=== PATIENT | male | born 1970 | race Caucasian/White ===

== ENCOUNTER 2017-05-03 09:21 | Emergency (ER) | payer BC, OTHER ==
--- NOTE | 2017-05-03 09:37 | EDPHY ---
H & P Stated Complaint: Injury R ring finger on free weight Time Seen by Provider: 05/03/17 09:36 HPI/ROS: HPI: This is a 46-year-old male presents with Chief Complaint: Injury R ring finger on free weight Location: Tip of right ring finger Quality: Injury Duration: 30 min prior to arrival Signs and Symptoms: No bleeding, no radiation, no numbness, no weakness, no tingling, no decreased range of motion, + swelling, + pain Timing: Sudden Severity: Moderate Context: Patient is right-hand dominant, was at the gym lifting 35 lb weights, and he accidentally slammed the weight down on his hand causing immediate pain to the tip of his right index finger. He was able to move it but it started to swell and now bruise. He reports that there is decreased range of motion due to swelling and pain. He is able to feel me touch the tip of his finger tip. He has not taken anything for the discomfort. Denies paresthesias/decreased range of motion/skin color changes. Modifying Factors: None Comment: ROS: see HPI Constitutional: No fever, no chills, no weight loss Eyes: No blurred vision Respiratory: No shortness of breath, no cough Cardiovascular: No chest pain Gastrointestinal: No nausea, no vomiting no diarrhea Genitourinary: No dysuria Extremities: No myalgias Neurologic: No weakness, no numbness Skin: No rashes Hematologic: No bruising, no bleeding MEDICAL/SURGICAL/SOCIAL HISTORY: Medical history: CML taking Gleevec Surgical history: Denies Social history: Employed. CONSTITUTIONAL: Pleasant adult white male, awake and alert, no obvious distress HEENT: Atraumatic and normocephalic, PERRL, EOMI. Tympanic membranes clear. Oropharynx clear, no exudate and moist pink mucosa. Airway patent. No lymphadenopathy. No meningismus. Cardiovascular: Normal S1/S2, regular rate, regular rhythm, without murmur rub or gallop. PULMONARY/CHEST: Symmetrical and nontender. Clear to auscultation bilaterally. Good air movement. No accessory muscle usage. ABDOMEN: Soft, nondistended, nontender, no rebound, no guarding, no peritoneal signs, no masses or organomegaly. No CVAT. EXTREMITIES: 2/2 radial pulses, strength 5/5, right index finger PIP decreased flexion and extension by 10%; DIP flexion and extension intact. No nail involvement. Moderate swelling and bruising noted to the tip of his right index finger that is tender to touch. No open laceration. Good light touch sensation. Right index finger warm to touch. Good capillary refill. no clubbing , no cyanosis or edema. NEUROLOGICAL: no focal neuro deficits. GCS 15. SKIN: Warm and dry, no erythema. no rash. Source: Patient Exam Limitations: No limitations - Medical/Surgical History Hx Asthma: No Hx Chronic Respiratory Disease: No Hx Diabetes: No Hx Cardiac Disease: No Hx Renal Disease: No Hx Cirrhosis: No Hx Alcoholism: No Hx HIV/AIDS: No Hx Splenectomy or Spleen Trauma: No Other PMH: CML - Social History Smoking Status: Never smoked Constitutional: Initial Vital Signs Temperature (C) 36.5 C 05/03/17 09:25 Heart Rate 92 05/03/17 09:25 Respiratory Rate 18 05/03/17 09:25 Blood Pressure 114/80 05/03/17 09:25 O2 Sat (%) 98 05/03/17 09:25 O2 Delivery Mode Room Air Allergies/Adverse Reactions: penicillin G Allergy (Mild, Verified 05/03/17 09:29) Itching Home Medications: Medication Instructions Recorded Gleevec 100 mg (*) 03/08/16 Omeprazole [Prilosec 20 mg] 05/03/17 Medical Decision Making - Diagnostics Imaging Results: Imaging Impressions Finger X-Ray 05/03/17 09:36 Impression: Oblique nondisplaced right fourth distal phalanx tuft fracture. Procedures: Procedure: Splint placement. A left finger splint was applied by the Emergency Room supervisor sound technician. After application of the splint I returned and re-examined the patient. The splint was adequately immobilizing the joint and distal to the splint the patient's circulation and sensation was intact. ED Course/Re-evaluation: Right 4th digit finger x-ray obtained Ice pack applied and ibuprofen given No signs of neurovascular compromise/tenting of skin/compartment syndrome/ extremities and joints examined above and below area of concern and are neurovascularly intact. X-ray my read shows distal phalanx/tuft nondisplaced fracture; no dislocation. Placed in finger splint, ES hand surgery follow-up This patient was seen under the supervision of my secondary supervising physician. I evaluated care for this patient independently. Patient's presentation, labs/imaging, treatment and plan of care were discussed with secondary supervising physician. Differential Diagnosis: Differential diagnosis includes but is not limited to phalanx fracture, tendon injury, nerve injury, contusion, dislocation. - Data Points Medications Given: Discontinued Medications Ibuprofen (Motrin) 800 mg PO EDNOW ONE Stop: 05/03/17 10:08 Last Admin: 05/03/17 10:10 Dose: 800 mg Departure - Departure Disposition: Home, Routine, Self-Care Clinical Impression: Fracture of distal phalanx of right ring finger Qualifiers: Encounter type: initial encounter Fracture type: closed Fracture alignment: nondisplaced Qualified Code(s): S62.664A - Nondisplaced fracture of distal phalanx of right ring finger, initial encounter for closed fracture Condition: Good Instructions: Finger Fracture (ED) Additional Instructions: The finger x-ray in the emergency room today shows a nondisplaced/minimally displaced distal finger fracture. Keep the splint dry and in place until seen for follow-up with Hand Surgery. Take Tylenol 650 mg every 4 hours and/or Ibuprofen 600 mg every 8 hours with food as needed for pain. Apply ice for 30 minutes at a time; 2-3 times per day for the next 1-2 days. Follow up with Hand Surgery in 7-10 days at which time they will re-evaluate and re-image your fracture. If at any time you experience numbness, increased pain, skin color changes, fever; please return to the emergency room immediately for re-evaluation. Referrals: Reynaldo Wang MD [Medical Doctor] - As per Instructions
[2017-05-03] MEDS ORDERED: IBUPROFEN 800 MG TAB PO ONE (10:07)
[2017-05-03 10:19] VITALS: BP 119/68; PULSE 60; RESP 16; TEMP 98.2; O2SAT 99
== END 2017-05-03 10:25 | disposition home or self-care (01) ==
DX: S62.664A Nondisplaced fracture of distal phalanx of right ring finger, initial encounter for closed fracture (principal); X50.0XXA Overexertion from strenuous movement or load, initial encounter
CPT/HCPCS: L3925